=== PATIENT | male | born 1980 | race American Indian/Alaskan Native ===

== ENCOUNTER 2018-05-31 17:24 | Emergency (ER) | payer OTHER ==
--- NOTE | 2018-05-31 18:14 | ED PDOC ---
HPI: Abdomen Time Seen by Provider: 05/31/18 17:45 Chief Complaint (Nursing): Abdominal Pain Chief Complaint (Provider): Diarrhea History Per: Patient History/Exam Limitations: no limitations Onset/Duration Of Symptoms: Days Additional Complaint(s): 37 y/o male presents to the ED for evaluation of diarrhea. Patient reports he recently went to [facility] when he developed diarrhea. Patient reports he was seen and evaluated in a hospital in [place] and was prescribed Cipro and Flagel. Patient states he finished course and since then stool has not been normal. Patient states he noticed what looked like sesame seeds inside his stool. Patient reports stool looks light in color and soft. Patient additionally reports approximately 4 days ago he developed intermittent epigastric pain that radiates to the left side. Otherwise patient denies fever, nausea, vomiting and urinary symptoms. PMD: No Provided Past Medical History Reviewed: Historical Data, Nursing Documentation, Vital Signs - Medical History PMH: No Chronic Diseases - Surgical History Surgical History: No Surg Hx - Family History Family History: States: Unknown Family Hx - Home Medications Home Medications: Ambulatory Orders Medication Instructions Recorded Ketorolac Tromethamine [Toradol] 10 mg PO BID #20 tab 12/21/16 Tramadol HCl [Ultram] 50 mg PO Q6 #15 tab 12/21/16 Naproxen 1 tab PO Q12 PRN #14 tab 06/25/17 Sulfamethoxazole/Trimethoprim 1 tab PO BID #9 tab 05/31/18 [Bactrim DS 800 mg-160 mg] - Allergies Allergies/Adverse Reactions: Allergies Allergy/AdvReac Type Severity Reaction Status Date / Time No Known Allergies Allergy Verified 05/31/18 17:39 Review of Systems ROS Statement: Except As Marked, All Systems Reviewed And Found Negative Constitutional: Negative for: Fever Gastrointestinal: Positive for: Abdominal Pain, Diarrhea. Negative for: Nausea, Vomiting Genitourinary Male: Negative for: Dysuria, Frequency, Hematuria Physical Exam - Reviewed Nursing Documentation Reviewed: Yes Vital Signs Reviewed: Yes - Physical Exam Appears: Positive for: No Acute Distress Head Exam: Positive for: ATRAUMATIC, NORMOCEPHALIC Skin: Positive for: Normal Color, Warm, Dry Eye Exam: Positive for: Normal appearance, EOMI, PERRL Neck: Positive for: Normal, Painless ROM Cardiovascular/Chest: Positive for: Regular Rate, Rhythm. Negative for: Murmur Respiratory: Positive for: Normal Breath Sounds. Negative for: Respiratory Distress Gastrointestinal/Abdominal: Positive for: Normal Exam, Soft. Negative for: Tenderness Back: Positive for: Normal Inspection. Negative for: L CVA Tenderness, R CVA Tenderness Extremity: Positive for: Normal ROM. Negative for: Pedal Edema, Deformity Neurologic/Psych: Positive for: Alert, Oriented. Negative for: Motor/Sensory Deficits - Laboratory Results Result Diagrams: 05/31/18 18:57 05/31/18 18:57 Medical Decision Making Medical Decision Making: Time: 1800 Impression: Diarrhea Differentials include but not limited to infectious diarrhea and colitis. Plan: -- CMP -- Lipase -- ED Urine Dipstick -- CBC with Differentials -- PTT -- Prothrombin Time -- Sodium Chloride IV 1000 mls/hr -- OVA and PARASITE -- Stool Culture -- Urinalysis Time: 1954 Plan: -- CT Abd/Pelvis IV Contrast ONLY CT RESULTS FINDINGS: LUNG BASES: The lung bases appear clear. No pleural effusions are seen. LIVER: 2 cm hyperintense lesion of the right hepatic lobe medially which contains internal hypoenhancing area which may represent a scar, not consistent with a simple hemangioma but may represent an FNH or adenoma. For further c haracterization evaluation with MRI is recommended. GALLBLADDER AND BILE DUCTS: The gallbladder appears within normal limits. No radioopaque gallstones are seen. No biliary ductal dilatation is evident. PANCREAS: Unremarkable. SPLEEN: Unremarkable. ADRENAL GLANDS: Unremarkable. KIDNEYS, URETERS, AND BLADDER: The kidneys appear within normal limits. There is no hydronephrosis or hydr oureter. No urinary calculi are seen. STOMACH AND BOWEL: Thick walled fluid filled duodenum and loops of jejunum as well as ileum compatible with enteritis. Infectious and inflammatory etiologies are considered. Consider consultation with GI service and follow up with upper endoscopy and colonoscopy. APPENDIX: No evidence of acute appendicitis on CT examination. PERITONEUM: No free fluid. No free air. LYMPH NODES: No lymphadenopathy is evident. REPRODUCTIVE: Unremarkable as visualized. VASCULATURE: No evidence of abdominal aortic aneurysm. BONES: No aggressive appearing osseous lesion. No acute osseous pathology evident. IMPRESSION: 1. Enteritis. Infectious and inflammatory etiologies are considered. 2. 2 cm right hepatic lobe mass as above. For further characterization evaluation with MRI is recommended. Electronically signed on May 31, 2018 9:33:48 PM EDT by: Romie Casper M.D., DONN Certified By [facility] [employer] [facility] Fellowship Trained MRI and CT Specialist Scribe Attestation: Documented by Angelic Díaz, acting as a scribe Matt Veliz MD. Provider Scribe Attestation: All medical record entries made by the Scribe were at my direction and personally dictated by me. I have reviewed the chart and agree that the record accurately reflects my personal performance of the history, physical exam, medical decision making, and the department course for this patient. I have also personally directed, reviewed, and agree with the discharge instructions and di sposition. Disposition - Clinical Impression Clinical Impression: Enteritis Counseled Patient/Family Regarding: Studies Performed, Diagnosis, Need For Followup, Rx Given - Disposition Referrals: Gilles Veras MD [Staff Provider] - Disposition: Routine/Home Disposition Time: 22:50 Condition: GOOD Prescriptions: Sulfamethoxazole/Trimethoprim [Bactrim DS 800 mg-160 mg] 1 tab PO BID #9 tab Instructions: Diarrhea in Adolescents and Adults Forms: [facility] (Congolese)
[2018-05-31] MEDS ORDERED: Sodium Chloride 0.9% 1,000 ML IV STA (18:48)
[2018-05-31 19:07] LABS: BASO % 0.9 % (0.0-2.0); EOS # 0.1 K/uL (0.0-0.7); EOS % 2.1 % (0.0-4.0); HEMOGLOBIN 13.6 g/dL (12.0-18.0); LYMPH # 1.6 K/uL (1.0-4.3); LYMPH % 32.6 % (20.0-40.0); MEAN CELL VOLUME 90.4 fl (80.0-94.0); MEAN CORPUSCULAR HGB CONC 33.2 g/dL (33.0-37.0); MEAN PLATELET VOLUME 8.6 fl (7.2-11.7); MONO # 0.4 K/uL (0.0-0.8); MONO % 7.4 % (0.0-10.0); NEUT # 2.8 K/uL (1.8-7.0); RBC 4.54 Mil/uL (4.40-5.90); RED CELL DISTRIBUTION WIDTH 13.3 % (11.5-14.5); WHITE BLOOD COUNT 4.9 K/uL (4.8-10.8)
[2018-05-31 19:11] LABS: ALB/GLOB RATIO 1.3 (1.0-2.1); ALBUMIN 4.3 g/dL (3.5-5.0); ALT/SGPT 31 U/L (21-72); AST/SGOT 44 U/L (17-59); BLOOD UREA NITROGEN 13 mg/dl (9-20); CALCIUM 9.7 mg/dL (8.4-10.2); GFR NON-AFRICAN AMERICAN 57; LIPASE 180 U/L (23-300)
[2018-05-31 19:18] LABS: PROTHROMBIN TIME 11.2 Seconds (9.8-13.1)
[2018-05-31 19:20] LABS: PARTIAL THROMBOPLASTIN TIME 33.9 Seconds (25.6-37.1)
[2018-05-31 19:30] LABS: URINE BILIRUBIN NEGATIVE (NEGATIVE); URINE BLOOD NEGATIVE (NEGATIVE); URINE CLARITY CLEAR (Clear); URINE COLOR YELLOW (YELLOW); URINE GLUCOSE (UA) NEG (Normal); URINE LEUKOCYTE ESTERASE NEG Leu/uL (Negative); URINE PROTEIN NEGATIVE (NEGATIVE); URINE UROBILINOGEN 0.2-1.0 mg/dL (0.2-1.0)
[2018-05-31] MEDS ORDERED: Iohexol 300 100 ML IJ ONE (20:02)
[2018-05-31] MEDS ORDERED: Sodium Chloride 0.9% 50 ML IV ONE (20:02)
[2018-05-31 22:41] VITALS: BP 118/67; PULSE 50; RESP 18; TEMP 97.7; O2SAT 99
[2018-06-01] MEDS ORDERED: Tmp-Smz 800 mg-160 mg DS Tab PO SCH (09:00)
--- NOTE | 2018-06-01 12:37 | CT ---
Date of service: 05/31/2018 PROCEDURE: CT Abdomen and Pelvis with contrast HISTORY: Epigastric/LUQ pain COMPARISON: None. TECHNIQUE: Intravenous contrast dose: 95 cc Omnipaque 300. Radiation dose: Total exam DLP = 530.85 mGy-cm. This CT exam was performed using one or more of the following dose reduction techniques: Automated exposure control, adjustment of the mA and/or kV according to patient size, and/or use of iterative reconstruction technique. FINDINGS: LOWER THORAX: Unremarkable. LIVER: 2.1 cm contrast-enhancing mass right hepatic lobe/caudate region. The mass is hypervascular and the overall appearance would suggest benign etiology such as hemangioma or hemangioma variant. Focal nodular hyperplasia, hepatic adenoma can also assume this appearance. GALLBLADDER AND BILE DUCTS: Unremarkable. PANCREAS: Unremarkable. No gross lesion or ductal dilatation. SPLEEN: Unremarkable. ADRENALS: Unremarkable. No mass. KIDNEYS AND URETERS: Unremarkable. No hydronephrosis. No solid mass. VASCULATURE: Unremarkable. No aortic aneurysm. BOWEL: Unremarkable. No obstruction. No gross mural thickening. APPENDIX: No abnormalities to suggest acute appendicitis. No right lower quadrant inflammatory processes identified. PERITONEUM: Unremarkable. No free fluid. No free air. LYMPH NODES: Unremarkable. No enlarged lymph nodes. BLADDER: Unremarkable. REPRODUCTIVE: Unremarkable. BONES: No acute fracture. OTHER FINDINGS: None. IMPRESSION: No acute findings related to/accounting for the clinical presentation. Indeterminate hypervascular mass caudate lobe. Further evaluation recommended. Three-phase CT scan, MRI are valuable at junctions in differentiating benign etiologies from hepatocellular carcinoma. Concordant results (preliminary interpretation) provided by [facility]. Procedure Completed: 20:22. Preliminary Report: Dictated and Authenticated: 21:33. Final Interpretation: 12:33. May 31, 2018
== END 2018-05-31 22:50 | disposition home or self-care (01) ==
LOC: H.ER 17:24
DX: K52.9 Noninfective gastroenteritis and colitis, unspecified (principal)
CPT/HCPCS: 74177; 80053; 81003; 83690; 85025; 85610; 85730; 87045; 87177; 87209; 99284; J7030; Q9967